=== PATIENT | male | born 1960 | race Caucasian/White ===

== ENCOUNTER 2017-04-03 07:06 | Emergency (ER) | payer BC, OTHER ==
[2017-04-03 07:13] VITALS: BP 126/88
--- NOTE | 2017-04-03 07:13 | UC ---
Respiratory Complaint HPI - HPI Summary HPI Summary: Cough for three days. No fever, chest pain, sob. no prior lung disease. - History of Current Complaint Stated Complaint: COUGH Time Seen by Provider: 04/03/17 07:11 Hx Obtained From: Patient Onset/Duration: Gradual Onset Timing: Constant Severity Initially: Mild Severity Currently: Moderate Character: Cough: Nonproductive Aggravating Factors: Recumbent Position Associated Signs And Symptoms: Positive: URI, Nasal Congestion, Hoarseness. Negative: Dyspnea, Fever, Chills, Pleuritic Chest Pain, Wheezing, Hemoptysis, Dizziness, Calf Pain, Calf Swelling - Allergies/Home Medications Allergies/Adverse Reactions: Allergies Allergy/AdvReac Type Severity Reaction Status Date / Time No Known Allergies Allergy Verified 04/03/17 07:13 PMH/Surg Hx/FS Hx/Imm Hx Endocrine History Of: Denies: Diabetes, Thyroid Disease Cardiovascular History Of: Reports: Cardiac Disorders, Hypertension Respiratory History Of: Denies: COPD GI/ History Of: Denies: Gastroesophageal Reflux Psychological History Of: Denies: Anxiety Cancer History Of: Denies: Lung Cancer Other History Of: Negative For: HIV - Surgical History Surgical History: Yes Surgery Procedure, Year, and Place: Right TKA, 2013, [facility]; Cardiac Stent, 2011, [facility] - Family History Known Family History: Positive: Cardiac Disease, Hypertension - Social History Alcohol Use: Occasionally Alcohol Amount: 2 times a week Substance Use Type: None Smoking Status (MU): Never Smoked Tobacco - Immunization History Most Recent Influenza Vaccination: September 2016 Review of Systems All Other Systems Reviewed And Are Negative: Yes Physical Exam Triage Information Reviewed: Yes Appearance: Well-Appearing, No Pain Distress, Obese Vital Signs Reviewed: Yes Eye Exam: Normal Eyes: Positive: Conjunctiva Clear. Negative: Conjunctiva Inflamed ENT Exam: Normal ENT: Negative: Tonsillar swelling, Tonsillar exudate, Trismus Neck exam: Normal Neck: Positive: Supple, Nontender, No Lymphadenopathy Respiratory: Positive: Lungs clear, Normal breath sounds, No respiratory distress, No accessory muscle use. Negative: Crackles, Rhonchi, Stridor Cardiovascular Exam: Normal Cardiovascular: Positive: RRR, No Murmur, Pulses Normal, Brisk Capillary Refill Abdominal Exam: Normal Abdomen Description: Positive: Nontender, No Organomegaly Musculoskeletal Exam: Normal Musculoskeletal: Positive: Strength Intact, ROM Intact, No Edema Neurological Exam: Normal Neurological: Positive: Alert, Muscle Tone Normal. Negative: Fatigued Psychological Exam: Normal Skin Exam: Normal Respiratory Course/Dx - Course Course Of Treatment: Z pack if not improving after 7-10 days. tylenol with codeine only at night due to somnolence. return for any worsening. - Differential Dx/Diagnosis Differential Diagnosis/HQI/PQRI: Airway Obstruction, Asthma, Bronchitis, CHF, Pulmonary Edema, Exacerbation Of COPD, Influenza, Laryngitis, Lower Resp Infection, Pneumothorax, Pulmonary Embolism, Sinusitis Provider Diagnoses: acute bronchitis Discharge - Discharge Plan Condition: Good Disposition: HOME Prescriptions: Acetaminop/Codeine 30 MG TAB* [Tylenol/Codeine 30 MG TAB*] 1 tab PO Q8H PRN #12 tab MDD 3 PRN Reason: Cough Azithromyxin XOCHITL (NF) [Z-Xochitl (Zithromax) 250 mg tabs #6] 2 tab PO .TODAY, THEN 1 DAILY #6 tab Benzonatate CAP* [Tessalon 100 MG CAP*] 100 mg PO TID PRN #20 cap PRN Reason: Cough Patient Education Materials: Acute Bronchitis (ED) Referrals: Keith Stewart DO [Primary Care Provider] - If Needed Additional Instructions: take the azithromycin in 4-5 more days if not improving already.
== END 2017-04-03 07:36 | disposition home or self-care (01) ==
LOC: UCCORT 07:06
DX: J20.9 Acute bronchitis, unspecified (principal); I10 Essential (primary) hypertension; E66.9 Obesity, unspecified
CPT/HCPCS: 99212; G0463

== ENCOUNTER 2017-10-25 09:30 | Emergency (ER) | payer BC, OTHER ==
[2017-10-25 10:06] VITALS: BP 120/81
--- NOTE | 2017-10-25 10:18 | UC ---
Respiratory Complaint HPI - HPI Summary HPI Summary: 3 days of cough and congestion, diarrhea began to day no fevers - History of Current Complaint Chief Complaint: UCRespiratory Stated Complaint: COUGH/SAMUEL/SNEEZING Time Seen by Provider: 10/25/17 10:12 Hx Obtained From: Patient Onset/Duration: Gradual Onset, Lasting Days - 3, Still Present Timing: Constant Severity Initially: Mild Severity Currently: Moderate Character: Cough: Nonproductive Aggravating Factors: Recumbent Position Alleviating Factors: Nothing - Allergies/Home Medications Allergies/Adverse Reactions: Allergies Allergy/AdvReac Type Severity Reaction Status Date / Time No Known Allergies Allergy Verified 10/25/17 10:06 PMH/Surg Hx/FS Hx/Imm Hx Previously Healthy: No Endocrine History: Dyslipidemia Cardiovascular History: Hypertension Other History Of: Negative For: HIV - Surgical History Surgical History: Yes Surgery Procedure, Year, and Place: Right TKA, 2013, [facility]; Cardiac Stent, 2011, [facility] - Family History Known Family History: Positive: Cardiac Disease, Hypertension - Social History Occupation: Employed Full-time Lives: With Family Alcohol Use: Rare Alcohol Amount: 2 times a week Substance Use Type: None Smoking Status (MU): Never Smoked Tobacco - Immunization History Most Recent Influenza Vaccination: September 2016 Review of Systems Constitutional: Negative Skin: Negative Eyes: Negative ENT: Nasal Discharge, Sinus Congestion Respiratory: Cough Cardiovascular: Negative Gastrointestinal: Negative Genitourinary: Negative Motor: Negative Neurovascular: Negative Musculoskeletal: Negative Neurological: Negative Psychological: Negative Is Patient Immunocompromised?: No All Other Systems Reviewed And Are Negative: Yes Physical Exam Triage Information Reviewed: Yes Appearance: Well-Appearing, No Pain Distress, Well-Nourished Vital Signs: Initial Vital Signs Temp 98.3 F 10/25/17 10:02 Pulse 69 10/25/17 10:02 Resp 16 10/25/17 10:02 BP 120/81 10/25/17 10:02 Pulse Ox 98 10/25/17 10:02 Vital Signs Reviewed: Yes Eye Exam: Normal Eyes: Positive: Conjunctiva Clear ENT Exam: Normal ENT: Positive: Normal ENT inspection, Hearing grossly normal, Pharynx normal, TMs normal, Uvula midline. Negative: Nasal congestion, Nasal drainage, Tonsillar swelling, Tonsillar exudate, Trismus, Muffled voice, Hoarse voice, Dental tenderness, Sinus tenderness Dental Exam: Normal Neck exam: Normal Neck: Positive: Supple, Nontender, No Lymphadenopathy Respiratory Exam: Normal Respiratory: Positive: Chest non-tender, Lungs clear, Normal breath sounds, No respiratory distress, No accessory muscle use Cardiovascular Exam: Normal Cardiovascular: Positive: RRR, No Murmur, Pulses Normal, Brisk Capillary Refill Musculoskeletal Exam: Normal Musculoskeletal: Positive: Strength Intact, ROM Intact, No Edema Neurological Exam: Normal Neurological: Positive: Alert, Muscle Tone Normal Psychological Exam: Normal Skin Exam: Normal UC Diagnostic Evaluation - Laboratory O2 Sat by Pulse Oximetry: 98 Respiratory Course/Dx - Course Course Of Treatment: Increase fluids, tessalon, robitussin AC follow with pcp - Differential Dx/Diagnosis Provider Diagnoses: URI, Well controlled hypertension Discharge - Discharge Plan Condition: Stable Disposition: HOME Prescriptions: Benzonatate CAP* [Tessalon 100 MG CAP*] 100 mg PO TID PRN #30 cap PRN Reason: Cough Dextromethorphan-Guaifenesin [Guaifenesin-Dm 100-10 mg/5Ml] 5 - 10 syp PO QID PRN #90 ml MDD 40 PRN Reason: cough Guaifenesin-Codeine [Cheratussin AC] 5 - 10 ml PO QID PRN #120 ml MDD 40 PRN Reason: Cough Patient Education Materials: Upper Respiratory Infection (ED) Referrals: Keith Stewart DO [Primary Care Provider] - If Needed
== END 2017-10-25 10:32 | disposition home or self-care (01) ==
LOC: UCCORT 09:30
DX: J06.9 Acute upper respiratory infection, unspecified (principal); I10 Essential (primary) hypertension
CPT/HCPCS: 99212; G0463

== ENCOUNTER 2017-11-11 09:53 | Emergency (ER) | payer BC, OTHER ==
[2017-11-11 11:28] VITALS: BP 142/91
--- NOTE | 2017-11-11 11:34 | UC ---
Minor Trauma HPI - HPI Summary HPI Summary: 57 year old male presents with complains of left rib pain. - History of Current Complaint Chief Complaint: UCUpperExtremity Stated Complaint: LEFT RIB INJURY Time Seen by Provider: 11/11/17 11:33 Hx Obtained From: Patient Onset/Duration: Sudden Onset Severity Initially: Moderate Severity Currently: Moderate Pain Scale Used: 0-10 Numeric - 7 - Allergies/Home Medications Allergies/Adverse Reactions: Allergies Allergy/AdvReac Type Severity Reaction Status Date / Time No Known Allergies Allergy Verified 11/11/17 11:22 PMH/Surg Hx/FS Hx/Imm Hx Previously Healthy: Yes Other History Of: Negative For: HIV - Surgical History Surgical History: Yes Surgery Procedure, Year, and Place: Right TKA, 2013, [facility]; Cardiac Stent, 2011, [facility] - Family History Known Family History: Positive: Cardiac Disease, Hypertension - Social History Alcohol Use: Rare Alcohol Amount: 2 times a week Substance Use Type: None Smoking Status (MU): Never Smoked Tobacco - Immunization History Most Recent Influenza Vaccination: September 2016 Review of Systems Constitutional: Negative Skin: Negative Eyes: Negative ENT: Negative Respiratory: Negative Cardiovascular: Negative Gastrointestinal: Negative Genitourinary: Negative Motor: Negative Neurovascular: Negative Musculoskeletal: Other: - left rib pain Neurological: Negative Psychological: Negative All Other Systems Reviewed And Are Negative: Yes Physical Exam Triage Information Reviewed: Yes Vital Signs: Initial Vital Signs Temp 36.6 C 11/11/17 11:24 Pulse 66 11/11/17 11:24 Resp 18 11/11/17 11:24 BP 142/91 11/11/17 11:24 Pulse Ox 97 11/11/17 11:24 Vital Signs Reviewed: Yes Eye Exam: Normal ENT Exam: Normal Dental Exam: Normal Neck exam: Normal Neck: Positive: 1 Respiratory Exam: Normal Cardiovascular Exam: Normal Abdominal Exam: Normal Musculoskeletal: Positive: Other: - left rib pain Neurological Exam: Normal Psychological Exam: Normal Skin Exam: Normal Minor Trauma Course/Dx - Differential Dx/Diagnosis Provider Diagnoses: left rib pain. left intercostal muscle pain (rib 9/10) Discharge - Discharge Plan Condition: Stable Disposition: HOME Prescriptions: Meloxicam [Mobic] 7.5 mg PO BID #30 tab Methocarbamol TAB* [Robaxin 500 MG TAB*] 500 mg PO TID PRN #30 tab PRN Reason: Spasms Patient Education Materials: Costochondritis (ED) Referrals: Keith Stewart DO [Primary Care Provider] -
--- NOTE | 2017-11-11 12:07 | RAD ---
Indication: LEFT lateral mid to lower rib pain following throwing injury. Comparison: No relevant prior exams available on the [facility] for comparison. Technique: Dual energy PA chest and 3 dedicated LEFT rib views. Report: Negative for LEFT rib fracture, pleural effusion, or pneumothorax. The heart, pulmonary vasculature, and mediastinal contours are unremarkable. IMPRESSION: Negative dual energy PA chest radiograph and LEFT unilateral rib series.
== END 2017-11-11 12:17 | disposition home or self-care (01) ==
LOC: UCCORT 09:53
DX: R07.81 Pleurodynia (principal); R07.82 Intercostal pain; Z95.5 Presence of coronary angioplasty implant and graft
CPT/HCPCS: 99212; G0463

== ENCOUNTER 2018-01-15 07:10 | Emergency (ER) | payer BC, OTHER ==
[2018-01-15 07:32] VITALS: BP 125/85
--- NOTE | 2018-01-15 08:06 | UC ---
Skin Complaint HPI - HPI Summary HPI Summary: He was on in [place] and while there was a small patch of "dry skin" between the toes of the right foot. He tried terbinafine and this did not work. Now its between all toes of the right foot. He is not a diabetic and there is no fever or spreading redness. - History of Current Complaint Chief Complaint: UCSkin Time Seen by Provider: 01/15/18 07:54 Stated Complaint: SKIN COMPLAINT Hx Obtained From: Patient Onset/Duration: Gradual Onset, Lasting Days Skin Exposure Onset/Duration: Days Ago Timing: Constant Onset Severity: Mild Current Severity: Moderate Pain Intensity: 0 Location: Diffuse, Foot (Right) Aggravating Factor(s): Nothing Alleviating Factor(s): Nothing Associated Signs & Symptoms: Positive: Drainage - there is clear wetness. - Allergy/Home Medications Allergies/Adverse Reactions: Allergies Allergy/AdvReac Type Severity Reaction Status Date / Time No Known Allergies Allergy Verified 01/15/18 07:25 Review of Systems Skin: Rash All Other Systems Reviewed And Are Negative: Yes PMH/Surg Hx/FS Hx/Imm Hx Previously Healthy: No - no diabetes. Other History Of: Negative For: HIV - Surgical History Surgical History: Yes Surgery Procedure, Year, and Place: Right TKA, 2013, [facility]; Cardiac Stent, 2011, [facility] - Family History Known Family History: Positive: Cardiac Disease, Hypertension - Social History Occupation: Employed Full-time Lives: With Family Alcohol Use: Occasionally Alcohol Amount: 2 times a week Substance Use Type: None Smoking Status (MU): Never Smoked Tobacco - Immunization History Most Recent Influenza Vaccination: September 2016 Physical Exam Triage Information Reviewed: Yes Appearance: Well-Appearing, Obese Vital Signs: Initial Vital Signs Temp 98 F 01/15/18 07:26 Pulse 67 01/15/18 07:26 Resp 18 01/15/18 07:26 BP 125/85 01/15/18 07:26 Pulse Ox 98 01/15/18 07:26 Vital Signs Reviewed: Yes Eyes: Positive: Conjunctiva Clear ENT: Positive: Normal ENT inspection, Pharynx normal Neck: Positive: Supple, Nontender, No Lymphadenopathy Respiratory: Positive: Normal breath sounds, No respiratory distress, No accessory muscle use Cardiovascular: Positive: Pulses Normal Abdomen Description: Negative: Distended Musculoskeletal: Positive: Strength Intact, ROM Intact, No Edema Neurological: Positive: Alert, Muscle Tone Normal. Negative: Fatigued Psychological: Positive: Age Appropriate Behavior Skin: Positive: Other - Between toes of the right foot is a watery wet rash with pink skin. No streaking or redness. There is also whitish skin. Course/Dx - Course Course Of Treatment: possible bacterial component to this athelete's foot. cipro and tolnaftate. Return for any worsening. - Diagnoses Provider Diagnoses: athlete's foot. Discharge - Discharge Plan Condition: Good Disposition: HOME Prescriptions: Ciprofloxacin TAB* [Cipro 500 MG TAB*] 500 mg PO BID #20 tab Tolnaftate 1% CREAM* [Tinactin 1% CREAM*] 1 applic TOPICAL BID #1 tube Patient Education Materials: Athlete's Foot (ED) Referrals: Keith Stewart DO [Primary Care Provider] - If Needed
== END 2018-01-15 08:05 | disposition home or self-care (01) ==
LOC: UCCORT 07:10
DX: B35.3 Tinea pedis (principal)
CPT/HCPCS: 99212; G0463

== ENCOUNTER 2018-02-27 10:53 | Emergency (ER) | payer BC, OTHER ==
[2018-02-27 12:09] VITALS: BP 132/90
--- NOTE | 2018-02-27 12:29 | UC ---
Throat Pain/Nasal [place] HPI - HPI Summary HPI Summary: Patient to urgent care today complains of 10 days of worsening sinus pain and sore throat and postnasal drip - History of Current Complaint Chief Complaint: UCGeneralIllness Stated Complaint: COUGH, CONGESTION, SORE THROAT Time Seen by Provider: 02/27/18 12:27 Hx Obtained From: Patient Onset/Duration: Gradual Onset, Lasting Days - 10, Still Present Severity: Moderate Pain Intensity: 0 Pain Scale Used: 0-10 Numeric Cough: None Associated Signs & Symptoms: Positive: Sinus Discomfort, Nasal Discharge - Allergies/Home Medications Allergies/Adverse Reactions: Allergies Allergy/AdvReac Type Severity Reaction Status Date / Time No Known Allergies Allergy Verified 02/27/18 12:03 PMH/Surg Hx/FS Hx/Imm Hx Previously Healthy: No Endocrine History: Dyslipidemia Cardiovascular History: Hypertension Other History Of: Negative For: HIV - Surgical History Surgical History: Yes Surgery Procedure, Year, and Place: Right TKA, 2013, [facility]; Cardiac Stent, 2011, [facility] - Family History Known Family History: Positive: Cardiac Disease, Hypertension - Social History Occupation: Employed Full-time Lives: With Family Alcohol Use: Occasionally Alcohol Amount: 2 times a week Substance Use Type: None Smoking Status (MU): Never Smoked Tobacco - Immunization History Most Recent Influenza Vaccination: September 2016 Review of Systems Constitutional: Negative Skin: Negative Eyes: Negative ENT: Sore Throat, Ear Ache, Nasal Discharge, Sinus Congestion Respiratory: Negative Cardiovascular: Negative Gastrointestinal: Negative Genitourinary: Negative Motor: Negative Neurovascular: Negative Musculoskeletal: Negative Neurological: Negative Psychological: Negative Is Patient Immunocompromised?: No All Other Systems Reviewed And Are Negative: Yes Physical Exam Triage Information Reviewed: Yes Appearance: Ill-Appearing - mild, Pain Distress - mild, Obese Vital Signs: Initial Vital Signs Temp 97.6 F 02/27/18 12:01 Pulse 64 02/27/18 12:01 Resp 18 02/27/18 12:01 BP 132/90 02/27/18 12:01 Pulse Ox 98 02/27/18 12:01 Vital Signs Reviewed: Yes Eye Exam: Normal Eyes: Positive: Conjunctiva Clear ENT Exam: Normal ENT: Positive: Normal ENT inspection, Hearing grossly normal, Pharynx normal, Nasal congestion, Nasal drainage, TMs normal, Sinus tenderness, Uvula midline. Negative: Tonsillar swelling, Tonsillar exudate, Trismus, Muffled voice, Hoarse voice, Dental tenderness Dental Exam: Normal Neck exam: Normal Neck: Positive: Supple, Nontender, No Lymphadenopathy Respiratory Exam: Normal Respiratory: Positive: Chest non-tender, Lungs clear, Normal breath sounds, No respiratory distress, No accessory muscle use Cardiovascular Exam: Normal Cardiovascular: Positive: RRR, No Murmur, Pulses Normal, Brisk Capillary Refill Musculoskeletal Exam: Normal Musculoskeletal: Positive: Strength Intact, ROM Intact, No Edema Neurological Exam: Normal Neurological: Positive: Alert, Muscle Tone Normal Psychological Exam: Normal Skin Exam: Normal Throat Pain/Nasal Course/Dx - Course Assessment/Plan: treated with Augmentin, Flonase Mucinex Coricidin product this patient has high blood pressure increase fluids follow with PCP - Differential Dx/Diagnosis Provider Diagnoses: Acute rhinosinusitis Discharge - Sign-Out/Discharge Documenting (check all that apply): Discharge - Discharge Plan Condition: Stable Disposition: HOME Prescriptions: Amoxicillin/Clavulanate TAB* [Augmentin TAB 875*] 875 mg PO BID #20 tab Fluticasone NASAL SPRAY 50MCG* [Flonase NASAL SPRAY 50MCG*] 2 spray BOTH NARES DAILY #1 btl Patient Education Materials: Guaifenesin (By mouth), Sinusitis (ED) Referrals: Keith Stewart DO [Primary Care Provider] - If Needed - Billing Disposition and Condition Condition: STABLE Disposition: HOME
== END 2018-02-27 12:43 | disposition home or self-care (01) ==
LOC: UCCORT 10:53
DX: J01.90 Acute sinusitis, unspecified (principal)
CPT/HCPCS: 99212; G0463

== ENCOUNTER 2019-02-04 07:00 | Emergency (ER) | payer BC, OTHER ==
[2019-02-04 07:18] VITALS: BP 110/80
--- NOTE | 2019-02-04 07:37 | UC ---
Nausea/Vomiting/Diarrhea HPI - HPI Summary HPI Summary: 58-year-old male who complaint of nausea and diarrhea for the last 3 days. Patient reports 3 days ago in the morning he ate eggs and after sticking couple bites that didn't taste good and he stopped eating them. The rest of the day he was nauseous. He has not thrown up. 2 days ago he started with watery diarrhea. Has not seen any blood in it. Fevers or chills chills. He gets abdominal cramping just prior to having diarrhea but then the abdominal pain goes away. Every time he eats he has another bowel movement. No change in urine. - History of Current Complaint Chief Complaint: UCGI Stated Complaint: UPSET STOMACH Time Seen by Provider: 02/04/19 07:15 Pain Intensity: 0 - Allergies/Home Medications Allergies/Adverse Reactions: Allergies Allergy/AdvReac Type Severity Reaction Status Date / Time No Known Allergies Allergy Verified 02/04/19 07:14 PMH/Surg Hx/FS Hx/Imm Hx Previously Healthy: Yes Endocrine History: Dyslipidemia Cardiovascular History: Hypertension Other History Of: Negative For: HIV - Surgical History Surgical History: Yes Surgery Procedure, Year, and Place: Right TKA, 2013, [facility]; Cardiac Stent, 2011, [facility] - Family History Known Family History: Positive: Cardiac Disease, Hypertension - Social History Alcohol Use: Occasionally Alcohol Amount: 2 times a week Substance Use Type: None Smoking Status (MU): Never Smoked Tobacco - Immunization History Most Recent Influenza Vaccination: September 2016 Review of Systems All Other Systems Reviewed And Are Negative: Yes Constitutional: Positive: Negative Skin: Positive: Negative Eyes: Positive: Negative ENT: Positive: Negative Respiratory: Positive: Negative Cardiovascular: Positive: Negative Gastrointestinal: Positive: Abdominal Pain, Diarrhea, Nausea Genitourinary: Positive: Negative Motor: Positive: Negative Neurovascular: Positive: Negative Musculoskeletal: Positive: Negative Neurological: Positive: Negative Psychological: Positive: Negative Is Patient Immunocompromised?: No Physical Exam Triage Information Reviewed: Yes Appearance: Well-Appearing, No Pain Distress, Well-Nourished Vital Signs: Initial Vital Signs Temp 97.5 F 02/04/19 07:16 Pulse 73 02/04/19 07:16 Resp 20 02/04/19 07:16 BP 110/80 02/04/19 07:16 Pulse Ox 100 02/04/19 07:16 Vital Signs Reviewed: Yes Eye Exam: Normal Eyes: Positive: Conjunctiva Clear ENT: Positive: Pharynx normal Neck exam: Normal Neck: Positive: Supple Respiratory: Positive: Lungs clear, Normal breath sounds, No respiratory distress Cardiovascular: Positive: RRR Abdomen Description: Positive: Nontender, Soft Bowel Sounds: Positive: Hyperactive Musculoskeletal Exam: Normal Musculoskeletal: Positive: Strength Intact, ROM Intact Neurological Exam: Normal Neurological: Positive: Alert, Muscle Tone Normal Psychological Exam: Normal Psychological: Positive: Age Appropriate Behavior Skin Exam: Normal Naus/Vom/Diarrhea Course/Dx - Course Course Of Treatment: Patient was sent home with a stool sample kit. He has no fevers no localized area of continuous pain. Plan is to check the stool and determine further treatment based on that. Otherwise we talked about maintaining hydration with oral rehydration solutions. Overall plan he'll follow-up with his primary care doctor or get reevaluated sooner if worse. - Differential Dx/Diagnosis Provider Diagnosis: Diarrhea, Nausea Condition At Discharge: Stable Discharge - Sign-Out/Discharge Documenting (check all that apply): Patient Departure All imaging exams completed and their final reports reviewed: No Studies - Discharge Plan Condition: Stable Disposition: HOME Patient Education Materials: Acute Diarrhea (ED) Referrals: Keith Stewart DO [Primary Care Provider] - Additional Instructions: FOLLOW UP WITH YOUR DOCTOR IF NOT COMPLETELY IMPROVED. GET RECHECKED SOONER FOR ANY WORSENING OF YOUR CONDITION; PAIN, FEVER, BLOOD IN YOUR STOOL, YOU FEEL ILL OR QUESTIONS OR CONCERNS. - Billing Disposition and Condition Condition: STABLE Disposition: Home
== END 2019-02-04 07:45 | disposition home or self-care (01) ==
LOC: UCCORT 07:00
DX: R19.7 Diarrhea, unspecified (principal); R11.0 Nausea; R10.9 Unspecified abdominal pain; I10 Essential (primary) hypertension
CPT/HCPCS: 82272; 83630; 87045; 87046; 87328; 87329; 87493; 87899; 99212; G0463